=== PATIENT | male | born 1995 | race Caucasian/White ===

== ENCOUNTER 2020-11-23 17:58 | Emergency (ER) | payer OTHER ==
[~2020-11-23] VITALS: Ht 170.2 cm; Wt 104.3 kg
[2020-11-23 18:10] VITALS: Ht 170.2 cm; Wt 104.3 kg
[2020-11-23 18:45] VITALS: BP 128/82
== END 2020-11-23 18:45 | disposition home or self-care (01) ==
LOC: ED 17:58
DX: K64.8 Other hemorrhoids (principal); K62.5 Hemorrhage of anus and rectum